=== PATIENT | male | born 1940 | race Caucasian/White ===

== ENCOUNTER 2017-04-09 07:07 | Day surgery (SDC) | payer MEDICARE ==
[~2017-04-09] VITALS: Ht 172.7 cm; Wt 116.1 kg
[~2017-04-09 07:07] MED LIST: ASPI81CH PO; CALCAVITD PO; CALCIUM; HYDACE5325 PO; MULVITMINF PO; RXHYD5325 PO; SIMV10 PO; TERA5 PO; VIT B; VITAMIN D32000 UNI1 PO
== END 2017-04-09 23:05 | disposition home or self-care (01) ==
LOC: ORSCMMR 07:07
PROVIDERS: Internal Medicine Gastroenterology
PROC: 0DBP8ZX Excision of Rectum, Via Natural or Artificial Opening Endoscopic, Diagnostic (ICD-10-PCS; principal; 2017-04-09 09:30)
PROC: 0DBN8ZX Excision of Sigmoid Colon, Via Natural or Artificial Opening Endoscopic, Diagnostic (ICD-10-PCS; principal; 2017-04-09 09:30)
DX: Z12.11 Encounter for screening for malignant neoplasm of colon (principal); K63.5 Polyp of colon; K62.1 Rectal polyp; Z86.010 Personal history of colon polyps; K57.30 Diverticulosis of large intestine without perforation or abscess without bleeding; G47.33 Obstructive sleep apnea (adult) (pediatric); E78.00 Pure hypercholesterolemia, unspecified; I10 Essential (primary) hypertension; N40.0 Benign prostatic hyperplasia without lower urinary tract symptoms; Z79.82 Long term (current) use of aspirin; Z79.899 Other long term (current) drug therapy; E66.9 Obesity, unspecified; Z68.38 Body mass index [BMI] 38.0-38.9, adult
CPT/HCPCS: 88305; J2250; J2310; J3010; J7120